=== PATIENT | female | born 1930 | race Caucasian/White ===

== ENCOUNTER 2018-01-04 12:10 | Inpatient (IN) | payer OTHER ==
[~2018-01-04] VITALS: Ht 152.4 cm; Wt 180.0 kg
[2018-01-04] MEDS ORDERED: NITROFURANTOIN1 GM MC (13:43)
[2018-01-07] MEDS ORDERED: FLUCONAZOLE100 MG PO (13:06)
[2018-01-07] MEDS ORDERED: VITAMIN B-1000 MCG/3 PO (13:10)
[2018-01-07] MEDS ORDERED: FOLIC ACID1 MG PO (13:11)
[2018-01-07] MEDS ORDERED: HUMULIN N100 UNIT/2 SUBCUTANEO (13:13)
== END 2018-01-07 17:18 | disposition other institution (70) | DRG 638 ==
LOC: ER 12:10 → MEDJ 21:14
PROC: B44GZZZ Ultrasonography of Left Lower Extremity Arteries (ICD-10-PCS; principal; 2018-01-04)
PROC: 4A033R1 Measurement of Arterial Saturation, Peripheral, Percutaneous Approach (ICD-10-PCS; 2018-01-04)
DX: E11.00 Type 2 diabetes mellitus with hyperosmolarity without nonketotic hyperglycemic-hyperosmolar coma (NKHHC) (principal); E87.0 Hyperosmolality and hypernatremia; N17.8 Other acute kidney failure; B37.49 Other urogenital candidiasis; I77.1 Stricture of artery; E87.6 Hypokalemia; E86.0 Dehydration; G20 Parkinson's disease; F02.80 Dementia in other diseases classified elsewhere, unspecified severity, without behavioral disturbance, psychotic disturbance, mood disturbance, and anxiety; G30.8 Other Alzheimer's disease; Z74.01 Bed confinement status; Z93.1 Gastrostomy status; G40.409 Other generalized epilepsy and epileptic syndromes, not intractable, without status epilepticus; L89.152 Pressure ulcer of sacral region, stage 2; D69.59 Other secondary thrombocytopenia; D52.0 Dietary folate deficiency anemia; D51.3 Other dietary vitamin B12 deficiency anemia; Z66 Do not resuscitate; I70.292 Other atherosclerosis of native arteries of extremities, left leg; B96.29 Other Escherichia coli [E. coli] as the cause of diseases classified elsewhere; Z16.12 Extended spectrum beta lactamase (ESBL) resistance